=== PATIENT | female | born 1950 | race Caucasian/White ===

== ENCOUNTER → 2019-07-01 | Outpatient (CLI) | payer MEDICARE, OTHER ==
[~2019-07-01] MED LIST: ALEVE220 MG PO; COREG6.25 MG PO; IRON325 M1 PO; KLOR-CON 1010 MEQ PO; LANTUS SUBQ; LASIX 40 MG TAB40 MG PO; LIPITOR80 MG PO; METFORMIN HCL500 M3 PO; NORCO 5-325 TA1 EAC1 PO; PLAVIX 75 MG TA75 MG PO; PRALUENT P75 MG/1 ML SUBQ; TRULICITY0.75 MG/0. SUBQ; XARELTO2.5 MG PO; ZESTRIL40 MG PO; ZETIA10 MG PO
== END ==
LOC: M.MRI 11:06
DX: M17.11 Unilateral primary osteoarthritis, right knee (principal); M23.91 Unspecified internal derangement of right knee

== ENCOUNTER 2019-07-30 09:59 | Inpatient (IN) | payer MEDICARE, OTHER ==
[2019-07-18 09:21] LABS: HEMATOCRIT 37.9 % (37.0-47.0); HEMOGLOBIN 12.4 gm/dL (12.0-15.0); MCHC 32.8 g/dL (28.0-37.0); MCV 91.4 fL (80.0-100.0); MPV 7.9 fl. (7.2-11.1); RBC 4.15 mil/uL (4.20-5.00); RDW-CV 15.7 % (10.5-14.5); WBC 7.6 thou/uL (4.0-11.0)
[2019-07-18 09:30] LABS: INR 1.1; PROTIME 10.8 Seconds (9.20-11.50)
[2019-07-18 09:39] LABS: URINE BILIRUBIN NEGATIVE (Negative); URINE BLOOD 2+ (Negative); URINE CLARITY CLEAR; URINE COLOR YELLOW; URINE GLUCOSE-RANDOM 2+ (Negative); URINE KETONES NEGATIVE (Negative); URINE LEUKOCYTES-REFLEX NEGATIVE (Negative); URINE NITRITE-REFLEX NEGATIVE (Negative); URINE PROTEIN 3+ (Negative); URINE SPECIFIC GRAVITY >= 1.030 (1.005-1.030); URINE UROBILINOGEN 0.2 E.U./dl (0.2-1.0)
[2019-07-18 09:47] LABS: SQUAMOUS >10 Many /LPF (0-3)
[2019-07-18 09:48] LABS: CALCIUM 9.5 mg/dL (8.5-10.1); POTASSIUM 4.5 mmol/L (3.5-5.1); TOTAL BILIRUBIN 0.3 mg/dL (<0.1-1.0); TOTAL PROTEIN 8.2 g/dL (6.4-8.2)
[2019-07-18 09:49] LABS: URINE RBC 0-2 Rare /HPF (0-2); URINE WBC-REFLEX 0-5 Rare /HPF (0-5)
[2019-07-18 09:50] LABS: BACTERIA-REFLEX 1-9 Few /HPF (None Seen)
[2019-07-18 09:53] LABS: CRYSTALS None Seen /LPF (None Seen); HYALINE CASTS 0-3 Few /LPF (None Seen); MUCUS 4-6 Moderate strn/LPF (None Seen)
[~2019-07-30] VITALS: Ht 170.2 cm; Wt 70.3 kg
[2019-07-30 08:45] VITALS: BP 145/66
[2019-07-30 16:04] VITALS: BP 143/87
--- NOTE | 2019-07-30 18:03 | NUR ---
PATIENT ARRIVED TO UNIT AT 1600. ALERT AND ORIENTED X4. ASSESSMENT COMPLETED AND CHARTED. VSS ON 3 LITERS 02. NO COMPLAINTS OF PAIN. PATIENT UP WITH GAIT BELT AND WALKER TO USE BEDSIDE COMMODE. NO OTHER COMPLAINTS THIS SHIFT. FALL PRECAUTIONS IN PLACE. CALL LIGHT WITHIN REACH. AYANNAL AYDENNDS COMPLETED. NURSING WILL CONTINUE TO MONITOR.
[2019-07-31] VITALS: BP 139/75
[2019-07-31 04:00] VITALS: BP 151/81
[2019-07-31 05:26] LABS: HEMOGLOBIN 9.7 gm/dL (12.0-15.0)
--- NOTE | 2019-07-31 07:00 | NUR ---
PATIENT HAS SLEPT OFF AND ON DURING THE NIGHT. VSS ON 3L 02 VIA NASAL CANNULA WITH CAPNO IN PLACE. PAIN HAS BEEN WELL CONTROLLED. MEDICATIONS GIVEN ORDERED AND CHARTED. PATIENT HAS BEEN UP WITH ASSIST X 1 WITH GAITBELT AND WALKER AND DOING VERY WELL. DRESSING TO RIGHT KNEE IS C/D/I, AND ELIZABETH HOSE, SCD'S AND POLAR PACK IN PLACE. HEMOVAC IN PLACE WITH MODERATE AMOUNT OF DRAINAGE. PATIENT PLACED ON CPM THIS AM AND DOING WELL. IV IN LEFT HAND-SL. IV ABT GIVEN WITHOUT ANY ADVERSE SIDE EFFECTS NOTED. PATIENT HAS REMAINED IN CONTACT ISOLATION D/T POSITIVE MRSA OF THE NARES. FALL PRECAUTIONS IN PLACE AND HOURLY ROUNDS MADE. PATIENT INSTRUCTED TO USE CALL LIGHT WHEN NEEDING ASSISTANCE. HOURLY ROUNDS MADE. WILL CONTINUE WITH PLAN OF CARE AND NURSING TO MONITOR.
[2019-07-31 07:30] VITALS: BP 151/74
--- NOTE | 2019-07-31 16:00 | NUR ---
SPOKE WITH PT. SHE HAD JUST BEEN PUT IN HER CPM AND WAS TOLERATING IT. SHE LIVES WITH HER . HE WILL BE THERE TO HELP HER NEEDED. A NEIGHBOR FRIEND CAN COME STAY WITH HER FOR A FEW HRS A DAY IF HS TO LEAVE. HE WORKS INDEPENDENTLY SO CAN WORK WHEN HE WANTS TO. SHE HAS A WALKER ,STOOL RISER AND SHOWER BENCH. SHE HAS HAD A ROUGH YEAR, PHYSICALLY. SHE CHOSE [facility]. SHE SAID SHE USUALLY DOES OUTPT.BUT WOULD LIKE TO DO HH TO START. CALLED IN PRESCRIPTION FOR XAREL[facility] WRITTEN. COPAY WILL BE $9.00. PT.SAID SHE THINKS SHE IS ON A BLOOD THINNER AT HOME. WILL CHECK INTO THIS WITH RN.
--- NOTE | 2019-07-31 16:13 | NUR ---
ASSUMED CARE OF PATIENT AT APPROX 0730. ALERT AND ORIENTED X4. ASSESSMENT COMPLETED AND CHARTED. VSS ON ROOM AIR. PAIN MANAGED WITH ORAL OXY PRN. ANTIBIOTIC INFUSED ORDERED. PATIENT UP WITH GAIT BELT AND WALKER. PATIENT WILL CALL OUT AND ASK TO GO BACK TO BED, THEN SAY THAT SHE IS FINE TO SIT UP, THEN WILL GET UP TO THE BEDSIDE COMMODE WITHOUT ASSISTANCE AND SAY THAT STAFF IGNORED HER WHEN SHE CALLED TO GO TO THE BATHROOM. PATIENT EDUCATED ON THE IMPORTANCE OF PROPER COMMUNICATION AND FALL PREVENTION. FALL PRECAUTION IN PLACE. CALL LIGHT WITHIN REACH. HOURLY ROUNDS COMPLETED. NURSING WILL CONTINUE TO MONITOR.
[2019-07-31 20:00] VITALS: BP 183/74
[2019-08-01 04:05] VITALS: BP 162/76
[2019-08-01 04:52] LABS: HEMOGLOBIN 9.7 gm/dL (12.0-15.0)
--- NOTE | 2019-08-01 06:11 | NUR ---
Alert and oriented x 4. Up with assist x 1 with walker and gaitbelt to the bedside commode. She is voiding adequately. She did refuse CPM last evening b/c she had been in it up until 1800 and at 2200 she still didn't want to be in it. Her bp was high this shift it was observed that her bp med at 1800 was missed. Milk of mag given at bedtime. Rt knee drsg clean,dry and intact. pain meds x 2, she has slept well.
[2019-08-01 08:40] VITALS: BP 153/72
[2019-08-01 13:26] VITALS: BP 153/72
--- NOTE | 2019-08-01 15:45 | NUR ---
PT.FINISHED AFTERNOON THERAPY. HERE AND WATCHED THERAPY SESSION. NOW IN CPM. PT.SAID SHE DOES NOT FEEL READY TO GO HOME TONIGHT. SHE WOULD FEEL MORE COMFORTABLE GOING HOME TOMORROW. TOLD HER IF SHE WAS NOT READY TOMORROW WE WOULD NEED TO TALK ABOUT HER GOING TO SNF. SHE AND VERBALIZED UNDERSTANDING.
[2019-08-01 16:43] VITALS: BP 132/71
--- NOTE | 2019-08-01 18:40 | NUR ---
PATIENT ALERT AND ORIENTED THRU SHIFT. USING FWW AND GAIT BELT W/ SBA WHILE AMB AND W/ TRANSFERS. COOPERATIVE W/ PHYSICAL AND OCCUPATIONAL THERAPY TODAY. FEELS MORE CONFIDENT ABOUT GOING HOME TOMORROW, STATED THIS AFTERNOON. PATIENT VOICED CONCERN THIS AM THAT HER PAIN AND ANXIETY WERE NOT CONTROLLED YET AND THAT SHE WANTED TO BE MORE CONFIDENT WITH THE STAIRS SHE HAS 5 OF THEM AT HOME. FEELS THAT SHE NEEDS MORE TIME WITH THERAPIES TODAY. SEE MAR FOR PHARM NEEDS THIS SHIFT. POLAR PACK TO RT KNEE AT THIS TIME. RESTING IN BED IN DARKENED ROOM. CALL LIGHT IN REACH. DENIES NURSING NEEDS CURRENTLY. ~TJRN
--- NOTE | 2019-08-01 19:00 | NUR ---
LY ROUNDS DONE. ~LINUS
[2019-08-01 21:20] VITALS: BP 146/80
--- NOTE | 2019-08-02 05:00 | NUR ---
VSS RA. MEDS GIVEN ORDERED. PAIN CONTROLLED WITH NORCO AND OXY IR. ZOFRAN GIVEN ONCE FOR NAUSEA. PT UP TO BSC WITH STANDBY ASSIST. POLAR CARE IN PLACE. WILL CONTINUE TO MONITOR.
[2019-08-02 09:22] VITALS: BP 153/72
[2019-08-02 09:30] VITALS: BP 155/71
--- NOTE | 2019-08-02 09:59 | NUR ---
Received order from physician to assist with d/c. Spoke with pt and she is agreeable to go home with home health. Pt is not interested in going to SNF on d/c. Pt said her will transport home. Faxed orders to [facility]. No other needs identified.
--- NOTE | 2019-08-02 13:40 | NUR ---
DISCHARGE TO HOME W/ HOME HEALTH SERVICES. PATIENT ALERT AND ORIENTED THRU SHIFT, NOTED ANXIETY W/ AFTERCARE DISCHARGE PLANS AND WHAT TO EXPECT W/ HOME HEALTH SERVICES. PATIENT STATES SHE HAS NOT HAD HOME HEALTH IN THE PAST. PATIENT EDUCATED ON HOME HEALTH ROLES IN AFTER HOSPITAL THERAPIES AND NURSING. PATIENT STATES VERBALLY OF UNDERSTANDING. IV SL DISCONTINUED, TIP INTACT, COTTON BALL/TAPE APPLIED TO SITE. DISCHARGE INSTRUCTIONS REVIEWED W/ PATIENT, PRESENT. PATIENT STATES VERBALLY OF UNDERSTANDING. COPY OF INSTRUCTIONS AND ORIG SCRIPTS GIVEN TO PATIENT. BELONGINGS GATHERED PER IMCU SPECIALIST W/ PATIENT/ PRESENT. PATIENT DENIES OTHER NURSING NEEDS AT THIS TIME. SEE MAR. PATIENT ESCORTED TO AWAITING VEHICLE PER WC W/ NURSING/IMCU SPECIALIST PRESENT. BELONGINGS INCLUDING CPM AND POLAR PACK W/ PATIENT AT TIME OF DISCHARGE. NO OTHER NEEDS VOICED AT THIS TIME. ~TJRN
--- NOTE | 2019-08-06 10:47 | OP ---
[facility] [address] [place] [address] OPERATIVE REPORT Name: SOTERO SALDANA Room: [address] M.R.#: [id number] Admission: 07/30/19 Attend Phys: Larry Ruiz Discharge: 08/02/19 Date of : 52 Report #: [id number] THIS REPORT FOR: //name// CC: Rom Castro DATE OF SERVICE: 07/30/2019 PREOPERATIVE DIAGNOSIS: Right knee osteoarthritis. POSTOPERATIVE DIAGNOSIS: Right knee osteoarthritis. PROCEDURE: Right total knee arthroplasty. SURGEON: Obdulio Solis II, DO. BILLET SHEARER: JANIE Solorzano. ANESTHESIA: General endotracheal. ESTIMATED BLOOD LOSS: 50 mL. ANTIBIOTICS: Vancomycin preoperatively due to positive MRSA screen. DRAINS: Medium Hemovac. COMPLICATIONS: None. CONDITION: The patient is stable to recovery room. IMPLANTS: Listed in operative record and progress note. BRIEF HISTORY: The patient was seen in the preoperative area. Preoperative H and P was performed. Site was marked, questions were answered. Risks and benefits were discussed with the patient in detail about surgery. The patient wished to proceed, assuming all risks. DESCRIPTION OF PROCEDURE: The patient was taken to the operative suite and placed supine on the operative table, given appropriate anesthesia. A well-padded tourniquet applied to upper thigh, was inflated to 300 mmHg after gravity exsanguination. The operative knee was sterilely prepped and draped. Surgery began by midline incision. This was carried down to the subcutaneous tissues. A medial parapatellar arthrotomy was performed and carried down to bone. The patella was then everted and excess soft tissue was removed from the femur. Femoral cutting block was then applied, checked with a drop ayesha for [address] [address] OPERATIVE REPORT Name: SOTERO SALDANA Room: [address]#: [id number] Admission: 07/30/19 Attend Phys: Larry Ruiz Discharge: 08/02/19 Date of : 52 Report #: [id number] rotational alignment, pinned in appropriate position and appropriate cuts were made. A 4-in-1 cutting block was then applied, checked for rotational alignment, pinned in appropriate position and appropriate cuts were made. The tibia was then exposed and excess meniscus was removed. Retractor was placed on collateral ligaments. The tibial cutting block was then applied, pinned in appropriate position, checked with drop ayesha for rotational alignment and slope and appropriate cut was made. The tibial bone was removed. Tibial base plate was then applied, checked for rotational alignment with the drop ayesha and pinned in appropriate position. The pin was then applied and box cut was reamed. This was then trialed with appropriate spacer, which showed excellent fit and fill and excellent stability of the knee through all range of motion. The patella was then reamed in appropriate fashion and sized to appropriate size. Three peg holes were drilled and it was then trialed and showed excellent flexion, extension, excellent tracking of the patella within the groove. These trials were removed. The tibia was punched in appropriate fashion. Bone ends were cleansed with Pulsavac irrigation and cement was mixed and applied to final implants. These were then malleted into position and held the knee in extension and compressed to allow cement to cure. After it cured, excess was removed using Floyd and osteotome. Wound was then copiously irrigated and the final spacer was then malleted into position. The tourniquet was deflated. Hemostasis was maintained with electrocautery. Pain cocktail was injected. PRP gel sprayed throughout the internal aspects of the knee. Medium Hemovac drain was applied. Capsule was closed with #2 FiberWire and #1 Vicryl in [id number] fashion. Skin was closed with 2-0 Vicryl and running 3-0 Monocryl. Dermabond and sterile dressing applied. Hima wrap and PolarCare applied. The patient transported to recovery room in stable condition. Counts were correct throughout the procedure. <ELECTRONICALLY SIGNED> By: Obdulio Solis II, DO 08/06/19 [id number] Solis II, DO /nt
== END 2019-08-02 13:40 | disposition home health service (06) | DRG 470 ==
LOC: M.PRE → M.TBA 09:59 → M.ORTHSURG 09:59 → M.PRE 10:15 → M.ORTHSURG 15:27
PROVIDERS: Orthopaedic Surgery; ADMIT Internal Medicine
PROC: 0SRC0J9 Replacement of Right Knee Joint with Synthetic Substitute, Cemented, Open Approach (ICD-10-PCS; principal; 2019-07-30)
DX: M17.11 Unilateral primary osteoarthritis, right knee (principal); D62 Acute posthemorrhagic anemia; E11.9 Type 2 diabetes mellitus without complications; I10 Essential (primary) hypertension; E11.51 Type 2 diabetes mellitus with diabetic peripheral angiopathy without gangrene; Z95.820 Peripheral vascular angioplasty status with implants and grafts; Z88.8 Allergy status to other drugs, medicaments and biological substances; Z87.891 Personal history of nicotine dependence; Z83.6 Family history of other diseases of the respiratory system